=== PATIENT | female | born 1965 | race Two or more races ===

== ENCOUNTER → 2018-12-26 | Outpatient (REF) | payer MEDICARE, SELFPAY | LOC: M LAB LCGH 15:21 | PROVIDERS: ATTEND Obstetrics & Gynecology | DX: N95.0 Postmenopausal bleeding (principal) ==

== ENCOUNTER → 2019-01-11 | Outpatient (REF) | payer BC | LOC: M LAB LCGH 11:56 | PROVIDERS: ATTEND Obstetrics & Gynecology | DX: Z12.4 Encounter for screening for malignant neoplasm of cervix (principal); Z78.0 Asymptomatic menopausal state ==

== ENCOUNTER → 2022-03-04 | Outpatient (CLI) | payer MEDICARE | LOC: M CARPUL 08:06 | PROVIDERS: ATTEND Internal Medicine Cardiovascular Disease | DX: I50.32 Chronic diastolic (congestive) heart failure (principal); I35.8 Other nonrheumatic aortic valve disorders ==

== ENCOUNTER 2022-04-11 16:34 | Emergency (ER) | payer MEDICARE ==
[~2022-04-11] VITALS: Ht 162.6 cm; Wt 119.1 kg
[2022-04-11 17:29] LABS: VENOUS BASE EXCESS 0.3 (-2.0-2.0); VENOUS HCO3 24.7 MEQ/L (23.0-27.0); VENOUS O2 SATURATION 90.8 % (60.0-80.0); VENOUS PARTIAL PRESSURE O2 61.5 mmHg (30.0-50.0); VENOUS PH 7.419 UNITS (7.330-7.430); VENOUS STANDARD HCO3 24.6 MEQ/L; VENOUS TOTAL CO2 25.9 MEQ/L (24.0-28.0)
[2022-04-11 17:30] LABS: HEMATOCRIT 45.9 % (36.0-47.0); HEMOGLOBIN 14.1 g/dl (12.0-15.5); MEAN CORPUSCULAR HEMOGLOBIN 23.7 pg (27.0-33.0); MEAN CORPUSCULAR HGB CONC 30.7 g/dl (32.0-36.5); MEAN CORPUSCULAR VOLUME 77.3 fl (80.0-96.0); PLATELET COUNT, AUTOMATED 188 10^3/uL (150-450); RED BLOOD COUNT 5.94 10^6/uL (4.00-5.40); WHITE BLOOD COUNT 7.6 10^3/uL (4.0-10.0)
[2022-04-11] MEDS ORDERED: IBUPROFEN 600MG TAB PO ONE (17:30)
[2022-04-11 17:58] LABS: RSV AMPLIFICATION NEGATIVE (NEGATIVE)
[2022-04-11] MEDS: NS 1,000 ML IV SCH ×2 (18:00→20:05)
[2022-04-11 18:16] LABS: ALBUMIN 2.6 GM/DL (3.2-5.2); ALT/SGPT 107 U/L (12-78); BILIRUBIN,DIRECT 9.2 MG/DL (0.0-0.2); BILIRUBIN,TOTAL 11.7 MG/DL (0.2-1.0); BLOOD UREA NITROGEN 13 MG/DL (7-18); CALCIUM LEVEL 8.7 MG/DL (8.5-10.1); CARBON DIOXIDE LEVEL 24 MEQ/L (21-32); CHLORIDE LEVEL 102 MEQ/L (98-107); CREATININE FOR GFR 0.89 MG/DL (0.55-1.30); GLOMERULAR FILTRATION RATE > 60.0 (>51); GLUCOSE, FASTING 70 MG/DL (70-100); POTASSIUM SERUM 3.5 MEQ/L (3.5-5.1); SODIUM LEVEL 136 MEQ/L (136-145); TOTAL PROTEIN 5.6 GM/DL (6.4-8.2)
[2022-04-11] MEDS ORDERED: NS 3,570 ML in IV 1 EA IV ONE (18:20)
[2022-04-11] MEDS ORDERED: MOXIFLOXACIN HCL 400 MG in IV 1 EA IV ONE (18:25)
[2022-04-11 18:44] LABS: ATYPICAL LYMPH 12 % (0-5); LYMPHOCYTES 3 % (16-44); METAMYELOCYTES 1 % (0-0); MONOCYTES 1 % (0-5); NEUTROPHILS 71 % (28-66); PLATELET ESTIMATE NORMAL (NORMAL)
[2022-04-11 18:45] LABS: ANISOCYTOSIS 4+; MICROCYTOSIS 1+; POIKILOCYTOSIS 1+
[2022-04-11] MEDS ORDERED: ISOVUE-370 76% 100ML VIAL As Ordered ONE ×2 (18:55→19:06)
[2022-04-12] MEDS: NS 1,000 ML IV SCH (00:30)
[2022-04-12 02:45] VITALS: BP 93/53
[2022-04-13 12:17] LABS: HEPATITIS B CORE ANTIBODY IGM POSITIVE (NEGATIVE); HEPATITIS B SURFACE ANTIGEN NEGATIVE (NEGATIVE); HEPATITIS C VIRUS ABY INDEX 0.1 INDEX (<0.8)
== END 2022-04-12 03:11 | disposition short-term general hospital (02) ==
LOC: M ED 16:34 → EDBD 16:34 → M ED 04-12 03:11
DX: R09.02 Hypoxemia (principal); A41.9 Sepsis, unspecified organism; K80.80 Other cholelithiasis without obstruction; K83.09 Other cholangitis; I50.9 Heart failure, unspecified; F17.200 Nicotine dependence, unspecified, uncomplicated; Z80.9 Family history of malignant neoplasm, unspecified; R16.0 Hepatomegaly, not elsewhere classified; Z98.84 Bariatric surgery status; Z88.0 Allergy status to penicillin
CPT/HCPCS: 71045; 71275; 74177; 74181; 80048; 80076; 82803; 83605; 84443; 85025; 86705; 86709; 86803; 87040; 87077; 87186; 87340; 87631; 93005; 93041; 94760; 96361; 96365; 96366; 99285; J2280; Q9967

== ENCOUNTER 2023-01-01 11:09 | Day surgery (SDC) | payer MEDICARE ==
[~2023-01-01] VITALS: Ht 160 cm; Wt 116.9 kg
[~2023-01-01 11:09] MED LIST: ALBU8.5H INH; CARV3.12 PO; ESOM20CA25 PO; FURO20TA2 PO; INCR1INH INH; LEVO137T2 PO; NITR0.4S14 SL; NS 1,000 ML IV ONE
[2023-01-01] MEDS ORDERED: propofoL 200 MG/20 ML VIAL As Ordered ONE ×2 (12:55→13:14)
[2023-01-01] MEDS ORDERED: MIDAZOLAM INJ 2MG/2ML VIAL As Ordered ONE (12:56)
[2023-01-01 14:13] VITALS: BP 148/87
== END 2023-01-01 14:28 | disposition home or self-care (01) ==
LOC: M OPP 11:09
PROVIDERS: ATTEND Internal Medicine Gastroenterology
DX: Z12.11 Encounter for screening for malignant neoplasm of colon (principal); D12.8 Benign neoplasm of rectum; K63.5 Polyp of colon; K64.8 Other hemorrhoids; K57.30 Diverticulosis of large intestine without perforation or abscess without bleeding; B82.0 Intestinal helminthiasis, unspecified; Z98.0 Intestinal bypass and anastomosis status; R11.0 Nausea; F17.200 Nicotine dependence, unspecified, uncomplicated; Z79.51 Long term (current) use of inhaled steroids; Z79.890 Hormone replacement therapy; Z79.899 Other long term (current) drug therapy; Z88.0 Allergy status to penicillin
CPT/HCPCS: 43235; 45380; 45385; 88304; 88305; J2250

== ENCOUNTER → 2023-01-06 | Outpatient (CLI) | payer MEDICARE ==
[~2023-01-06] MED LIST changes: -NS 1,000 ML IV ONE
[2023-01-06 16:49] LABS: ALBUMIN 3.8 G/DL (3.2-5.2); ALKALINE PHOSPHATASE 110 U/L (46-116); ALT/SGPT 18 U/L (7.0-40); AST/SGOT 18 U/L (<34); BILIRUBIN,DIRECT 0.2 MG/DL (<0.4); BILIRUBIN,TOTAL 0.6 MG/DL (0.3-1.2); IRON (FE) 47 UG/DL (50-170); PERCENT SATURATION 11.2 % (13.2-45.0); TOTAL IRON BINDING CAPACITY 419 UG/DL (250-425)
[2023-01-06 17:29] LABS: HEPATITIS B CORE ANTIBODY IGM NEGATIVE (NEGATIVE)
[2023-01-06 18:26] LABS: HEPATITIS B SURFACE ANTIGEN POSITIVE (NEGATIVE)
[2023-01-12 16:08] LABS: ANCA-ATYPICAL <1:20 titer (Neg:<1:20); ANTI-MITOCHONDRIAL ANTIBODY <20.0 Units (0.0-20.0); ANTINUCLEAR ANTIBODIES DIRECT Negative (Negative); CERULOPLASMIN 35.8 mg/dL (19.0-39.0); CYTOPLASMIC NEUTROP AB ANCA-C <1:20 titer (Neg:<1:20); LIVER-KIDNEY MICROSOMAL ABY <20.1 Units (0.0-20.0); PERINUCLEAR AB ANCA-P <1:20 titer (Neg:<1:20)
== END ==
LOC: M RAD 13:55
PROVIDERS: ATTEND Internal Medicine Gastroenterology
DX: K91.86 Retained cholelithiasis following cholecystectomy (principal); R94.5 Abnormal results of liver function studies; Z98.84 Bariatric surgery status; Z90.49 Acquired absence of other specified parts of digestive tract; Z95.828 Presence of other vascular implants and grafts; D73.89 Other diseases of spleen; R11.0 Nausea